=== PATIENT | female | born 1945 | race African-American/Black ===

== ENCOUNTER 2016-07-17 09:29 | Emergency (ER) | payer MEDICAID ==
[~2016-07-17] VITALS: Ht 160 cm; Wt 107.0 kg
[~2016-07-17 09:29] MED LIST: ACET-2178 PO; ALBU6.7H INH; AMLO5TAB88 PO; BENA40TA3 PO; BENAZEPRIL HCL PO; MECL-109 PO; MELO-58 PO; MONT10TA21 PO; OMEP20CA10 PO; [UNRECOGNIZED DRUG - CODE] PO
[2016-07-17 10:13] LABS: EOSINOPHILS % 3.9 % (0.0-5.0); HEMATOCRIT. 40.2 % (36.0-48.0); LYMPHOCYTES % 38.8 % (20.0-50.0); MEAN CORPUSCULAR HEMOGLOBIN 28.2 pg (28.0-32.0); MEAN CORPUSCULAR VOLUME 86.9 fL (81.0-99.0); MEAN PLATELET VOLUME 7.5 fl (7.4-10.4); NEUTROPHILS % 46.3 % (40.0-76.0); PLATELET 368 x1000/uL (130-400); RED BLOOD CELL COUNT 4.62 mill/uL (4.2-5.4); RED CELL DISTRIBUTION WIDTH 14.2 % (11.6-14.6)
[2016-07-17] MEDS ORDERED: KETOROLAC 30MG/ML VIAL IV ONE ×2 (10:15→11:15)
[2016-07-17 10:17] LABS: PROTHROMBIN TIME 10.2 sec
[2016-07-17 10:25] LABS: CARBON DIOXIDE 33 mEq/L (21-32); CHLORIDE 106 mEq/L (98-107)
[2016-07-17 10:26] LABS: TROPONIN I < 0.02 ng/mL (0.00-0.04)
[2016-07-17 10:37] LABS: *AMPHETAMINES SCREEN URINE NEGATIVE (NEGATIVE); *BARBITURATES SCREEN URINE NEGATIVE (NEGATIVE); *BENZODIAZEPINES SCREEN URINE PRESUMTIVE POSITIVE (NEGATIVE); *COCAINE SCREEN URINE NEGATIVE (NEGATIVE); CANNABINOID URINE SCREEN NEGATIVE (NEGATIVE); METHADONE URINE SCREEN NEGATIVE (NEGATIVE); OPIATES URINE SCREEN PRESUMTIVE POSITIVE (NEGATIVE); PHENCYCLIDINE URINE SCREEN NEGATIVE (NEGATIVE)
[2016-07-17 11:50] VITALS: BP 146/90
== END 2016-07-17 12:19 | disposition home or self-care (01) ==
LOC: ER 10:03
DX: M43.6 Torticollis (principal); R07.89 Other chest pain; I10 Essential (primary) hypertension; I25.10 Atherosclerotic heart disease of native coronary artery without angina pectoris; K21.9 Gastro-esophageal reflux disease without esophagitis; J45.909 Unspecified asthma, uncomplicated; Z88.6 Allergy status to analgesic agent; Z88.3 Allergy status to other anti-infective agents; Z88.8 Allergy status to other drugs, medicaments and biological substances
CPT/HCPCS: 36415; 71010; 80048; 80305; 83880; 84484; 85025; 85610; 93005; 96374; 99285; J1885; J7030; J7050; Z7610

== ENCOUNTER 2016-12-01 03:10 | Emergency (ER) | payer MEDICAID ==
[~2016-12-01] VITALS: Ht 160 cm; Wt 84.0 kg
[~2016-12-01 03:10] MED LIST changes: +MELO-106 PO; -MELO-58 PO
[2016-12-01] MEDS ORDERED: ONDANSETRON HCL 4MG/2ML VIAL IV STA (04:15)
[2016-12-01] MEDS ORDERED: SODIUM CHLORIDE 0.9% 1,000 ML IV ONE (04:15)
[2016-12-01] MEDS ORDERED: KETOROLAC 30MG/ML VIAL IV STA (04:15)
[2016-12-01 04:43] LABS: BASOPHILS % 0.6 % (0.0-2.0); EOSINOPHILS % 2.6 % (0.0-5.0); HEMATOCRIT. 39.4 % (36.0-48.0); HEMOGLOBIN. 13.2 g/dL (12.0-16.0); LYMPHOCYTES % 25.4 % (20.0-50.0); MEAN CORPUSCULAR HEMOGLOBIN 29.5 pg (28.0-32.0); MEAN PLATELET VOLUME 7.7 fl (7.4-10.4); MONOCYTES % 9.4 % (2.0-8.0); PLATELET 333 x1000/uL (130-400); RED BLOOD CELL COUNT 4.48 mill/uL (4.2-5.4); RED CELL DISTRIBUTION WIDTH 13.7 % (11.6-14.6)
[2016-12-01 04:53] LABS: PROTHROMBIN TIME 10.6 sec (9.4-11.6)
[2016-12-01 04:55] LABS: CARBON DIOXIDE 30 mEq/L (21-32); CHLORIDE 109 mEq/L (98-107)
[2016-12-01 07:41] LABS: GLUCOSE URINE NEGATIVE (NEGATIVE); KETONES URINE NEGATIVE (NEGATIVE); LEUKOCYTE ESTERASE URINE NEGATIVE (NEGATIVE); NITRITE URINE NEGATIVE (NEGATIVE); OCCULT BLOOD URINE NEGATIVE (NEGATIVE); PH URINE 6.5 (4.5-8.0); PROTEIN URINE TRACE (NEGATIVE); SPECIFIC GRAVITY URINE 1.017 (1.005-1.030); UROBILINOGEN URINE 0.2 E.U./dL (0.2-1.0)
[2016-12-01 07:45] LABS: CLARITY URINE CLEAR (CLEAR); COLOR URINE YELLOW (YELLOW)
[2016-12-01 09:15] VITALS: BP 117/72
== END 2016-12-01 10:04 | disposition home or self-care (01) ==
LOC: ER 03:29
DX: M54.9 Dorsalgia, unspecified (principal); I10 Essential (primary) hypertension; M79.7 Fibromyalgia; J45.909 Unspecified asthma, uncomplicated; Z90.710 Acquired absence of both cervix and uterus; Z88.6 Allergy status to analgesic agent; Z88.1 Allergy status to other antibiotic agents
CPT/HCPCS: 36415; 71010; 74176; 80053; 81001; 83690; 85025; 85610; 96361; 96374; 96375; 99285; J1885; J2405; J7030; Z7610

== ENCOUNTER 2017-02-16 08:50 | Emergency (ER) | payer MEDICAID ==
[~2017-02-16] VITALS: Ht 160 cm; Wt 83.0 kg
[2017-02-16] MEDS ORDERED: ACETAMINOPHEN 325MG TABLET PO ONE (15:15)
[2017-02-16 17:22] VITALS: BP 145/72
== END 2017-02-16 17:22 | disposition home or self-care (01) ==
LOC: ER 09:26
DX: M25.561 Pain in right knee (principal); M25.562 Pain in left knee; M79.7 Fibromyalgia; I10 Essential (primary) hypertension; J45.909 Unspecified asthma, uncomplicated; M19.90 Unspecified osteoarthritis, unspecified site; Z87.891 Personal history of nicotine dependence; Z88.1 Allergy status to other antibiotic agents; Z88.5 Allergy status to narcotic agent; Z79.899 Other long term (current) drug therapy; Z90.710 Acquired absence of both cervix and uterus
CPT/HCPCS: 73562; 99284

== ENCOUNTER 2017-04-11 13:36 | Emergency (ER) | payer MEDICARE, MEDICAID ==
[~2017-04-11] VITALS: Ht 160 cm; Wt 83.0 kg
[2017-04-11 14:02] VITALS: BP 155/93
== END 2017-04-11 19:15 | disposition left against medical advice (07) ==
LOC: ER 15:26
DX: Z53.21 Procedure and treatment not carried out due to patient leaving prior to being seen by health care provider (principal)
CPT/HCPCS: 93005

== ENCOUNTER 2017-04-12 09:06 | Emergency (ER) | payer MEDICARE, MEDICAID ==
[~2017-04-12] VITALS: Ht 160 cm; Wt 83.0 kg
[2017-04-12 09:20] VITALS: BP 120/87
[2017-04-12] MEDS ORDERED: DIAZEPAM 5 MG TABLET PO ONE (14:15)
== END 2017-04-12 18:15 | disposition home or self-care (01) ==
LOC: ER 09:28
DX: M79.7 Fibromyalgia (principal); J45.909 Unspecified asthma, uncomplicated; I10 Essential (primary) hypertension; M19.90 Unspecified osteoarthritis, unspecified site; Z88.1 Allergy status to other antibiotic agents; Z88.5 Allergy status to narcotic agent; Z88.6 Allergy status to analgesic agent
CPT/HCPCS: 72141; 99284

== ENCOUNTER 2017-05-15 11:36 | Emergency (ER) | payer MEDICARE, MEDICAID ==
[~2017-05-15] VITALS: Ht 160 cm; Wt 82.0 kg
[2017-05-15 17:40] VITALS: BP 124/79
== END 2017-05-15 17:43 | disposition home or self-care (01) ==
LOC: ER 14:15
DX: B86 Scabies (principal); I10 Essential (primary) hypertension; J45.909 Unspecified asthma, uncomplicated; M79.7 Fibromyalgia; M54.30 Sciatica, unspecified side; Z88.1 Allergy status to other antibiotic agents; Z90.710 Acquired absence of both cervix and uterus
CPT/HCPCS: 99283

== ENCOUNTER 2018-04-12 10:20 | Inpatient (IN) | payer MEDICARE, MEDICAID ==
[~2018-04-12] VITALS: Ht 160 cm; Wt 82.1 kg
[~2018-04-12 10:20] MED LIST changes: -BENA40TA3 PO; +BENA40TA9 PO
[2018-04-12] MEDS ORDERED: NITROGLYCERIN 0.4MG TABLET SL SL PRN (10:45)
[2018-04-12 11:02] LABS: EOSINOPHILS % 3.1 % (0.0-5.0); HEMATOCRIT. 41.2 % (36.0-48.0); HEMOGLOBIN. 13.4 g/dL (12.0-16.0); LYMPHOCYTES % 35.3 % (20.0-50.0); MEAN CORPUSCULAR HEMOGLOBIN 29.2 pg (28.0-32.0); MEAN CORPUSCULAR VOLUME 89.4 fL (81.0-99.0); MEAN PLATELET VOLUME 7.6 fl (7.4-10.4); MONOCYTES % 9.5 % (2.0-8.0); NEUTROPHILS % 51.1 % (40.0-76.0); PLATELET 328 x1000/uL (130-400); RED BLOOD CELL COUNT 4.61 mill/uL (4.2-5.4); RED CELL DISTRIBUTION WIDTH 14.3 % (11.6-14.6)
[2018-04-12 11:08] LABS: CHLORIDE 109 mEq/L (98-107)
[2018-04-12 11:13] LABS: D-DIMER 0.37 mg/L FEU (<0.50); PROTHROMBIN TIME 10.3 sec (9.1-11.1)
[2018-04-12] MEDS: MORPHINE SULFATE 4 MG/ML CPJ (NOT FOR IM USE) IV PRN (20:27)
[2018-04-12] MEDS ORDERED: LORAZEPAM 0.5MG TABLET PO PRN (21:15)
[2018-04-12] MEDS ORDERED: ACETAMINOPHEN 325MG TABLET PO PRN (21:15)
[2018-04-12] MEDS ORDERED: HYDROCODONE/ACETAMINOPHEN 5/325MG TABLET PO PRN (21:15)
[2018-04-12] MEDS ORDERED: DOCUSATE SODIUM 100MG CAPSULE PO PRN (21:15)
[2018-04-12] MEDS ORDERED: ONDANSETRON HCL 4MG/2ML INJ IV PRN (21:15)
[2018-04-12] MEDS: MAGNESIUM/ALUMINUM HYDROXIDE/SIMETHICONE 30ML UDC PO PRN (21:27)
[2018-04-12 21:47] LABS: CREATINE KINASE MB FRACTION 3.1 ng/mL (0.5-3.6)
[2018-04-12] MEDS: CLONIDINE 0.1MG TABLET PO PRN (22:20)
[2018-04-12 23:30] VITALS: BP 145/81
[2018-04-13] VITALS: BP 145/81
[2018-04-13] MEDS: PREDNISONE 20MG TABLET PO SCH ×2 (02:00→02:26)
[2018-04-13] MEDS ORDERED: AMLODIPINE 5MG TABLET PO SCH (02:00)
[2018-04-13] MEDS: BENAZEPRIL 10MG TABLET PO SCH ×2 (02:25→20:50)
[2018-04-13] MEDS: PANTOPRAZOLE 40MG DR TABLET PO SCH (02:25)
[2018-04-13 08:00] VITALS: BP 154/73
[2018-04-13 08:24] LABS: EOSINOPHILS % 3.4 % (0.0-5.0); HEMATOCRIT. 39.6 % (36.0-48.0); HEMOGLOBIN. 12.8 g/dL (12.0-16.0); MEAN CORPUSCULAR HEMOGLOBIN 28.7 pg (28.0-32.0); MEAN CORPUSCULAR VOLUME 88.9 fL (81.0-99.0); MEAN PLATELET VOLUME 7.9 fl (7.4-10.4); MONOCYTES % 11.7 % (2.0-8.0); NEUTROPHILS % 51.9 % (40.0-76.0); PLATELET 296 x1000/uL (130-400); RED BLOOD CELL COUNT 4.45 mill/uL (4.2-5.4); RED CELL DISTRIBUTION WIDTH 14.2 % (11.6-14.6)
[2018-04-13 08:54] LABS: CHLORIDE 109 mEq/L (98-107)
[2018-04-13 09:00] LABS: PHOSPHORUS 3.3 mg/dL (2.5-4.9)
[2018-04-13 09:01] LABS: LDL CHOLESTEROL 94 mg/dL (5-100)
[2018-04-13 09:03] LABS: HDL CHOLESTEROL 54 mg/dL (40-59)
[2018-04-13] MEDS: MAGNESIUM/ALUMINUM HYDROXIDE/SIMETHICONE 30ML UDC PO PRN (09:32)
[2018-04-13] MEDS: LORATADINE 10MG TABLET PO SCH (09:33)
[2018-04-13 09:49] LABS: CLARITY URINE CLEAR (CLEAR); COLOR URINE YELLOW (YELLOW); KETONES URINE NEGATIVE (NEGATIVE); LEUKOCYTE ESTERASE URINE NEGATIVE (NEGATIVE); NITRITE URINE NEGATIVE (NEGATIVE); OCCULT BLOOD URINE NEGATIVE (NEGATIVE); PH URINE 6.5 (4.5-8.0); PROTEIN URINE NEGATIVE (NEGATIVE); SPECIFIC GRAVITY URINE 1.014 (1.005-1.030); UROBILINOGEN URINE 0.2 E.U./dL (0.2-1.0)
[2018-04-13 10:00] LABS: OPIATES URINE SCREEN PRESUMTIVE POSITIVE (NEGATIVE)
[2018-04-13 10:01] LABS: *AMPHETAMINES SCREEN URINE NEGATIVE (NEGATIVE); *BARBITURATES SCREEN URINE NEGATIVE (NEGATIVE); *BENZODIAZEPINES SCREEN URINE NEGATIVE (NEGATIVE); *COCAINE SCREEN URINE NEGATIVE (NEGATIVE); CANNABINOID URINE SCREEN NEGATIVE (NEGATIVE); PHENCYCLIDINE URINE SCREEN NEGATIVE (NEGATIVE)
[2018-04-13 10:02] LABS: METHADONE URINE SCREEN NEGATIVE (NEGATIVE)
[2018-04-13 12:00] VITALS: BP 151/86
[2018-04-13] MEDS: ASPIRIN 81MG TABLET PO SCH (12:30)
[2018-04-13] MEDS: MORPHINE SULFATE 4 MG/ML CPJ (NOT FOR IM USE) IV PRN (13:20)
[2018-04-13] MEDS: AMLODIPINE 5MG TABLET PO SCH (13:21)
[2018-04-13] MEDS ORDERED: MORPHINE SULFATE 4 MG/ML CPJ (NOT FOR IM USE) IV PRN (13:45)
[2018-04-13 16:00] VITALS: BP 153/92
[2018-04-13] MEDS ORDERED: SIMETHICONE 80MG TABLET CHEW PO PRN (16:30)
[2018-04-13] MEDS: MONTELUKAST SODIUM 10MG TABLET PO SCH (17:45)
[2018-04-13] MEDS: IPRATROPIUM/ALBUTEROL 0.5-3(2.5)MG/3ML NEB INH PRN (18:10)
[2018-04-13 20:00] VITALS: BP 153/89
[2018-04-14] VITALS: BP 140/89
[2018-04-14] MEDS: IPRATROPIUM/ALBUTEROL 0.5-3(2.5)MG/3ML NEB INH PRN ×2 (01:02→06:10)
[2018-04-14 04:00] VITALS: BP 142/89
[2018-04-14] MEDS: PANTOPRAZOLE 40MG DR TABLET PO SCH (04:05)
[2018-04-14 07:24] LABS: BASOPHILS % 0.8 % (0.0-2.0); EOSINOPHILS % 1.5 % (0.0-5.0); HEMATOCRIT. 41.4 % (36.0-48.0); HEMOGLOBIN. 13.5 g/dL (12.0-16.0); LYMPHOCYTES % 27.9 % (20.0-50.0); MEAN CORPUSCULAR HEMOGLOBIN 28.8 pg (28.0-32.0); MEAN CORPUSCULAR VOLUME 88.2 fL (81.0-99.0); MONOCYTES % 10.3 % (2.0-8.0); NEUTROPHILS % 59.5 % (40.0-76.0); PLATELET 304 x1000/uL (130-400)
[2018-04-14 08:00] VITALS: BP 140/94
[2018-04-14 08:12] LABS: CHLORIDE 109 mEq/L (98-107)
[2018-04-14] MEDS: ASPIRIN 81MG TABLET PO SCH (09:00)
[2018-04-14] MEDS: PREDNISONE 20MG TABLET PO SCH (09:00)
[2018-04-14] MEDS: BENAZEPRIL 10MG TABLET PO SCH ×2 (09:16→23:01)
[2018-04-14] MEDS: AMLODIPINE 5MG TABLET PO SCH (09:16)
[2018-04-14] MEDS: LORATADINE 10MG TABLET PO SCH (09:16)
[2018-04-14 12:13] VITALS: BP 154/92
[2018-04-14] MEDS: MAGNESIUM/ALUMINUM HYDROXIDE/SIMETHICONE 30ML UDC PO PRN (12:50)
[2018-04-14 16:21] VITALS: BP 142/84
[2018-04-14] MEDS: MONTELUKAST SODIUM 10MG TABLET PO SCH (17:24)
[2018-04-14 20:00] VITALS: BP 153/89
[2018-04-15] VITALS: BP 132/77
[2018-04-15 04:00] VITALS: BP 138/83
[2018-04-15] MEDS: PANTOPRAZOLE 40MG DR TABLET PO SCH (06:23)
[2018-04-15 07:02] LABS: BASOPHILS % 0.9 % (0.0-2.0); EOSINOPHILS % 2.9 % (0.0-5.0); HEMATOCRIT. 44.9 % (36.0-48.0); HEMOGLOBIN. 14.7 g/dL (12.0-16.0); LYMPHOCYTES % 29.1 % (20.0-50.0); MEAN CORPUSCULAR HEMOGLOBIN 29.1 pg (28.0-32.0); MEAN PLATELET VOLUME 8.2 fl (7.4-10.4); MONOCYTES % 11.2 % (2.0-8.0); NEUTROPHILS % 55.9 % (40.0-76.0); PLATELET 349 x1000/uL (130-400); RED BLOOD CELL COUNT 5.04 mill/uL (4.2-5.4); RED CELL DISTRIBUTION WIDTH 14.2 % (11.6-14.6)
[2018-04-15 07:16] LABS: CHLORIDE 109 mEq/L (98-107)
[2018-04-15 08:27] VITALS: BP 144/88
[2018-04-15] MEDS: LORATADINE 10MG TABLET PO SCH (08:33)
[2018-04-15] MEDS: AMLODIPINE 5MG TABLET PO SCH (08:33)
[2018-04-15] MEDS: PREDNISONE 20MG TABLET PO SCH (08:33)
[2018-04-15] MEDS: BENAZEPRIL 10MG TABLET PO SCH (08:33)
[2018-04-15 11:50] VITALS: BP 164/96
[2018-04-15] MEDS: CLONIDINE 0.1MG TABLET PO PRN (11:54)
[2018-04-15] MEDS ORDERED: NITR0.4T49 SL (12:31)
[2018-04-15 14:01] VITALS: BP 140/84
== END 2018-04-15 14:32 | disposition home or self-care (01) | DRG 203 ==
LOC: ER 10:20 → 6WST 12:55 → EDBEDREQ 12:58 → EDBEDREQTM 12:58 → ENRESERV 20:23
PROVIDERS: ADMIT Internal Medicine; ATTEND Internal Medicine
DX: M94.0 Chondrocostal junction syndrome [Tietze] (principal); E87.8 Other disorders of electrolyte and fluid balance, not elsewhere classified; R65.10 Systemic inflammatory response syndrome (SIRS) of non-infectious origin without acute organ dysfunction; I07.1 Rheumatic tricuspid insufficiency; N28.1 Cyst of kidney, acquired; K75.9 Inflammatory liver disease, unspecified; K21.9 Gastro-esophageal reflux disease without esophagitis; E78.5 Hyperlipidemia, unspecified; N18.9 Chronic kidney disease, unspecified; I12.9 Hypertensive chronic kidney disease with stage 1 through stage 4 chronic kidney disease, or unspecified chronic kidney disease; M19.90 Unspecified osteoarthritis, unspecified site; J45.909 Unspecified asthma, uncomplicated; Z90.710 Acquired absence of both cervix and uterus; Z88.6 Allergy status to analgesic agent; Z88.1 Allergy status to other antibiotic agents; Z91.011 Allergy to milk products; Z88.8 Allergy status to other drugs, medicaments and biological substances; Z91.018 Allergy to other foods; Z79.899 Other long term (current) drug therapy
CPT/HCPCS: 36415; 71045; 80048; 80061; 80305; 82550; 82553; 83036; 83735; 83880; 84100; 84443; 84484; 85379; 93005; 93306; 93970; 94640; 99285; J2270; J7512; J7620

== ENCOUNTER 2018-07-20 06:09 | Emergency (ER) | payer MEDICARE, MEDICAID ==
[~2018-07-20] VITALS: Ht 160 cm; Wt 86.0 kg
[~2018-07-20 06:09] MED LIST changes: +NITR0.4T49 SL; -OMEP20CA10 PO; +OMEP20CA5 PO
[2018-07-20] MEDS ORDERED: KETOROLAC 60MG/2ML VIAL IM STA (07:01)
[2018-07-20 07:24] LABS: BASOPHILS % 1.6 % (0.0-2.0); EOSINOPHILS % 3.3 % (0.0-5.0); HEMATOCRIT. 39.6 % (36.0-48.0); LYMPHOCYTES % 35.4 % (20.0-50.0); MEAN CORPUSCULAR HEMOGLOBIN 28.7 pg (28.0-32.0); MEAN CORPUSCULAR VOLUME 87.6 fL (81.0-99.0); MEAN PLATELET VOLUME 7.4 fl (7.4-10.4); MONOCYTES % 9.9 % (2.0-8.0); NEUTROPHILS % 49.8 % (40.0-76.0); PLATELET 368 x1000/uL (130-400); RED BLOOD CELL COUNT 4.53 mill/uL (4.2-5.4); RED CELL DISTRIBUTION WIDTH 13.9 % (11.6-14.6)
[2018-07-20 07:35] LABS: CHLORIDE 108 mEq/L (98-107)
[2018-07-20 09:29] VITALS: BP 131/78
== END 2018-07-20 09:42 | disposition home or self-care (01) ==
LOC: ER 06:09
DX: R05 Cough (principal); R07.89 Other chest pain; R94.31 Abnormal electrocardiogram [ECG] [EKG]; I10 Essential (primary) hypertension
CPT/HCPCS: 36415; 71045; 80053; 85025; 87040; 93005; 96372; 99284; J1885

== ENCOUNTER 2019-03-11 07:04 | Emergency (ER) | payer MEDICARE, MEDICAID ==
[~2019-03-11] VITALS: Ht 160 cm; Wt 83.0 kg
[~2019-03-11 07:04] MED LIST changes: -ACET-2178 PO; -ALBU6.7H INH; +ALBU6.7H11 INH; -MECL-109 PO; +MECL-159 PO; +OMEP20CA14 PO; -OMEP20CA5 PO; +TOPUD PO
[2019-03-11] MEDS ORDERED: ACETAMINOPHEN 325MG TABLET PO ONE (08:15)
[2019-03-11 10:10] VITALS: BP 120/75
== END 2019-03-11 10:18 | disposition home or self-care (01) ==
LOC: ER 07:04
DX: S09.90XA Unspecified injury of head, initial encounter (principal); S13.4XXA Sprain of ligaments of cervical spine, initial encounter; I10 Essential (primary) hypertension; J45.909 Unspecified asthma, uncomplicated; Z88.6 Allergy status to analgesic agent; Z88.5 Allergy status to narcotic agent; Z88.1 Allergy status to other antibiotic agents; Z79.899 Other long term (current) drug therapy; Z90.710 Acquired absence of both cervix and uterus; Z98.890 Other specified postprocedural states; X58.XXXA Exposure to other specified factors, initial encounter; Y93.89 Activity, other specified; Y92.89 Other specified places as the place of occurrence of the external cause; Y99.8 Other external cause status
CPT/HCPCS: 72040; 99284

== ENCOUNTER 2020-07-28 18:19 | Inpatient (IN) | payer MEDICARE, OTHER ==
[~2020-07-28] VITALS: Ht 160 cm; Wt 70.4 kg
[~2020-07-28 18:19] MED LIST changes: +ALBU6.7H9 INH; +AMLO10TA4 MT; -AMLO5TAB88 PO; +BENA20TA10 MT; -BENA40TA9 PO; +LORA10CA MT; -[UNRECOGNIZED DRUG - CODE] PO
[2020-07-28] MEDS ORDERED: KETOROLAC 30MG/ML VIAL IV STA (23:04)
[2020-07-28] MEDS ORDERED: ONDANSETRON HCL 4MG/2ML INJ IV STA (23:04)
[2020-07-28 23:25] LABS: HEMOGLOBIN. 15.9 g/dL (12.0-16.0); MEAN CORPUSCULAR HEMOGLOBIN 28.6 pg (28.0-32.0); MEAN CORPUSCULAR VOLUME 86.3 fL (81.0-99.0); MEAN PLATELET VOLUME 7.5 fl (7.4-10.4); PLATELET 407 x1000/uL (130-400); RED BLOOD CELL COUNT 5.56 mill/uL (4.2-5.4); RED CELL DISTRIBUTION WIDTH 13.8 % (11.6-14.6)
[2020-07-28 23:29] LABS: CHLORIDE 107 mEq/L (98-107)
[2020-07-29 00:08] LABS: PLATELET ESTIMATE NORMAL
[2020-07-29 03:05] LABS: CLARITY URINE CLOUDY (CLEAR); COLOR URINE DARK YELLOW (YELLOW); SPECIFIC GRAVITY URINE 1.031 (1.005-1.030)
[2020-07-29 03:06] LABS: KETONES URINE TRACE (NEGATIVE); LEUKOCYTE ESTERASE URINE 1+ (NEGATIVE); NITRITE URINE NEGATIVE (NEGATIVE); OCCULT BLOOD URINE NEGATIVE (NEGATIVE); PROTEIN URINE 2+ (NEGATIVE); UROBILINOGEN URINE 1.031 E.U./dL (0.2-1.0)
[2020-07-29] MEDS ORDERED: CEFTRIAXONE 1 G PREMIX 50 ML IV NR (04:30)
[2020-07-29 08:35] VITALS: BP 126/83
[2020-07-29 08:59] VITALS: BP 126/83
[2020-07-29 12:32] VITALS: BP 110/86
[2020-07-29] MEDS: DEXT 5%/0.45% NACL 1000ML 1,000 ML IV SCH ×2 (12:44→20:43)
[2020-07-29] MEDS: MORPHINE SULFATE 2 MG/ML CPJ (NOT FOR IM USE) IV PRN ×3 (12:46→21:49)
[2020-07-29] MEDS: ONDANSETRON HCL 4MG/2ML INJ IV PRN ×2 (14:21→20:43)
[2020-07-29] MEDS ORDERED: ENOXAPARIN 30MG/0.3ML SYR SUBCUT SCH (16:00)
[2020-07-29 16:09] VITALS: BP 135/77
[2020-07-29] MEDS: OMEPRAZOLE 20MG CAPSULE EXTENDED RELEASE PO SCH (16:55)
[2020-07-29 20:00] VITALS: BP 105/58
[2020-07-29] MEDS ORDERED: IPRATROPIUM/ALBUTEROL 0.5-3(2.5)MG/3ML NEB HHN PRN (20:15)
[2020-07-29] MEDS: IPRATROPIUM/ALBUTEROL 0.5-3(2.5)MG/3ML NEB HHN SCH (20:15)
[2020-07-30] VITALS: BP 112/58
[2020-07-30] MEDS: IPRATROPIUM/ALBUTEROL 0.5-3(2.5)MG/3ML NEB HHN SCH ×5 (00:55→15:30)
[2020-07-30 04:30] VITALS: BP 106/69
[2020-07-30] MEDS: MORPHINE SULFATE 2 MG/ML CPJ (NOT FOR IM USE) IV PRN (06:12)
[2020-07-30] MEDS: OMEPRAZOLE 20MG CAPSULE EXTENDED RELEASE PO SCH (06:23)
[2020-07-30] MEDS: DEXT 5%/0.45% NACL 1000ML 1,000 ML IV SCH (06:23)
[2020-07-30 08:02] VITALS: BP 124/78
[2020-07-30] MEDS ORDERED: LACTULOSE 20G/30ML UDC PO SCH (11:00)
[2020-07-30 12:15] VITALS: BP 135/83
[2020-07-30] MEDS ORDERED: ENOXAPARIN 30MG/0.3ML SYR SUBCUT SCH (15:00)
[2020-07-30] MEDS ORDERED: LEVO500T89 MT (15:30)
[2020-07-30 15:44] VITALS: BP 128/68
[2020-07-30] MEDS ORDERED: LEVOFLOXACIN 500MG TABLET PO NR (16:00)
[2020-07-30 16:35] VITALS: BP 128/68
[2020-07-30] MEDS ORDERED: ACETAMINOPHEN 325MG TABLET PO NR (19:30)
[2020-07-31] MEDS ORDERED: FAMOTIDINE 20MG TABLET PO SCH (09:00)
[2020-07-31] MEDS ORDERED: LEVOFLOXACIN 250MG TABLET PO SCH (11:00)
== END 2020-07-30 19:25 | disposition home or self-care (01) | DRG 241 ==
LOC: ER 18:19 → 6WST 07-29 04:57 → CANRESERV 07-29 07:20 → ENRESERV 07-29 07:20 → 6WST 07-29 08:44
PROVIDERS: ADMIT Internal Medicine; ATTEND Internal Medicine
DX: K29.70 Gastritis, unspecified, without bleeding (principal); K56.600 Partial intestinal obstruction, unspecified as to cause; N39.0 Urinary tract infection, site not specified; K52.9 Noninfective gastroenteritis and colitis, unspecified; I10 Essential (primary) hypertension; M19.90 Unspecified osteoarthritis, unspecified site; J45.909 Unspecified asthma, uncomplicated; K21.9 Gastro-esophageal reflux disease without esophagitis; Z90.710 Acquired absence of both cervix and uterus; Z88.6 Allergy status to analgesic agent; Z88.1 Allergy status to other antibiotic agents; Z88.8 Allergy status to other drugs, medicaments and biological substances; Z79.899 Other long term (current) drug therapy; Z91.011 Allergy to milk products; Z91.018 Allergy to other foods
CPT/HCPCS: 36415; 74018; 74176; 80053; 81003; 85025; 87077; 87186; 93005; 94640; 99285; J0696; J1650; J1885; J2270; J2405

== ENCOUNTER 2021-01-17 13:18 | Inpatient (IN) | payer MEDICARE, OTHER ==
[~2021-01-17] VITALS: Ht 160 cm; Wt 83.0 kg
[~2021-01-17 13:18] MED LIST changes: -ALBU6.7H11 INH; +ALBU6.7H15 INH; +LEVO500T89 MT
[2021-01-17] MEDS ORDERED: VISCOUS LIDOCAINE 2% 15 ML UDC PO ONE (14:00)
[2021-01-17] MEDS ORDERED: MAGNESIUM/ALUMINUM HYDROXIDE/SIMETHICONE 30ML UDC PO ONE (14:00)
[2021-01-17 15:16] LABS: CHLORIDE 105 mEq/L (98-107)
[2021-01-17 15:25] LABS: BASOPHILS % 0.4 % (0.0-2.0); HEMATOCRIT. 48.9 % (36.0-48.0); HEMOGLOBIN. 15.7 g/dL (12.0-16.0); LYMPHOCYTES % 11.8 % (20.0-50.0); MEAN CORPUSCULAR HEMOGLOBIN 28.4 pg (28.0-32.0); MEAN CORPUSCULAR VOLUME 88.1 fL (81.0-99.0); MEAN PLATELET VOLUME 8.2 fl (7.4-10.4); MONOCYTES % 3.1 % (2.0-8.0); NEUTROPHILS % 84.7 % (40.0-76.0); PLATELET 378 x1000/uL (130-400); RED BLOOD CELL COUNT 5.55 mill/uL (4.2-5.4); RED CELL DISTRIBUTION WIDTH 14.4 % (11.6-14.6)
[2021-01-17] MEDS ORDERED: ONDANSETRON HCL 4MG/2ML INJ IV STA (23:37)
[2021-01-17] MEDS ORDERED: KETOROLAC 15MG/ML VIAL IV ONE (23:45)
[2021-01-17] MEDS ORDERED: SODIUM CHLORIDE 0.9% 1,000 ML IV ONE (23:45)
[2021-01-18] MEDS ORDERED: KETOROLAC 30MG/ML VIAL IV NR (00:15)
[2021-01-18] MEDS ORDERED: ONDANSETRON HCL 4MG/2ML INJ IV ONE (05:00)
[2021-01-18] MEDS ORDERED: MORPHINE SULFATE 4 MG/ML CPJ (NOT FOR IM USE) IV ONE (05:00)
[2021-01-18] MEDS ORDERED: DEXT 5%/0.45% NACL KCL 10MEQ/L 1,000 ML IV SCH (09:15)
[2021-01-18] MEDS ORDERED: NALOXONE HCL 0.4MG/ML VIAL IV PRN (10:00)
[2021-01-18] MEDS: MORPHINE SULFATE 2 MG/ML CPJ (NOT FOR IM USE) IV PRN ×3 (10:06→23:30)
[2021-01-18] MEDS: PANTOPRAZOLE SODIUM 40 MG/VIAL IV SCH (10:06)
[2021-01-18 11:16] VITALS: BP 144/85
[2021-01-18 12:00] VITALS: BP 143/80
[2021-01-18] MEDS: DEXT 5%/0.45% NACL 1000ML 1,000 ML IV SCH ×2 (12:25→19:30)
[2021-01-18 16:00] VITALS: BP 125/74
[2021-01-18 20:00] VITALS: BP 128/71
[2021-01-19] VITALS: BP 128/67
[2021-01-19 04:00] VITALS: BP 133/73
[2021-01-19] MEDS: MORPHINE SULFATE 2 MG/ML CPJ (NOT FOR IM USE) IV PRN ×3 (04:04→14:48)
[2021-01-19] MEDS: DEXT 5%/0.45% NACL 1000ML 1,000 ML IV SCH ×2 (06:10→18:44)
[2021-01-19 07:09] LABS: BASOPHILS % 0.4 % (0.0-2.0); EOSINOPHILS % 1.1 % (0.0-5.0); HEMOGLOBIN. 14.2 g/dL (12.0-16.0); LYMPHOCYTES % 18.7 % (20.0-50.0); MEAN CORPUSCULAR HEMOGLOBIN 29.1 pg (28.0-32.0); MEAN CORPUSCULAR VOLUME 88.5 fL (81.0-99.0); MEAN PLATELET VOLUME 8.2 fl (7.4-10.4); MONOCYTES % 11.7 % (2.0-8.0); NEUTROPHILS % 68.1 % (40.0-76.0); PLATELET 288 x1000/uL (130-400); RED BLOOD CELL COUNT 4.86 mill/uL (4.2-5.4)
[2021-01-19 08:00] VITALS: BP 139/70
[2021-01-19] MEDS: PANTOPRAZOLE SODIUM 40 MG/VIAL IV SCH (09:28)
[2021-01-19 12:00] VITALS: BP 143/57
[2021-01-19] MEDS: THROAT LOZENGES-BENZOCAINE/MENTH/CETYLPYRD CL LOZENGES MM PRN ×2 (12:53→18:34)
[2021-01-19 16:00] VITALS: BP 126/90
[2021-01-19] MEDS ORDERED: ONDANSETRON HCL 4MG/2ML INJ IV PRN (18:00)
[2021-01-19 20:00] VITALS: BP 140/75
[2021-01-19] MEDS ORDERED: CLOTRIMAZOLE 1% VAGINAL CREAM 45GM VG SCH (21:00)
[2021-01-20] VITALS: BP 146/97
[2021-01-20] MEDS: MORPHINE SULFATE 2 MG/ML CPJ (NOT FOR IM USE) IV PRN (00:56)
[2021-01-20 04:00] VITALS: BP 138/78
[2021-01-20 08:00] VITALS: BP 132/81
[2021-01-20] MEDS ORDERED: FAMOTIDINE 20MG/2ML VIAL IV SCH (09:00)
[2021-01-20] MEDS ORDERED: BENAZEPRIL 10MG TABLET PO SCH (10:15)
[2021-01-20] MEDS ORDERED: AMLODIPINE 5MG TABLET PO SCH (10:15)
[2021-01-20] MEDS: DEXT 5%/0.45% NACL 1000ML 1,000 ML IV SCH (10:56)
[2021-01-20] MEDS ORDERED: IPRATROPIUM/ALBUTEROL 0.5-3(2.5)MG/3ML NEB HHN PRN (11:30)
[2021-01-20 12:00] VITALS: BP 155/89
[2021-01-20] MEDS ORDERED: HYDROCODONE/ACETAMINOPHEN 5/325MG TABLET PO PRN ×2 (12:00→13:00)
[2021-01-20] MEDS: THROAT LOZENGES-BENZOCAINE/MENTH/CETYLPYRD CL LOZENGES MM PRN (13:28)
[2021-01-20 15:39] VITALS: BP 120/72
[2021-01-20 16:00] VITALS: BP 120/72
== END 2021-01-20 17:55 | disposition home or self-care (01) | DRG 247 ==
LOC: ER 13:55 → 6EST 01-18 05:50 → EDBEDREQ 01-18 05:56 → EDBEDREQTM 01-18 05:56 → ENRESERV 01-18 07:34
PROVIDERS: ADMIT Internal Medicine; ATTEND Internal Medicine
PROC: 0D9670Z Drainage of Stomach with Drainage Device, Via Natural or Artificial Opening (ICD-10-PCS; principal; 2021-01-18)
DX: K56.600 Partial intestinal obstruction, unspecified as to cause (principal); I10 Essential (primary) hypertension; J45.909 Unspecified asthma, uncomplicated; M19.90 Unspecified osteoarthritis, unspecified site; K21.9 Gastro-esophageal reflux disease without esophagitis; Z82.49 Family history of ischemic heart disease and other diseases of the circulatory system; Z90.710 Acquired absence of both cervix and uterus; Z88.5 Allergy status to narcotic agent; Z88.8 Allergy status to other drugs, medicaments and biological substances
CPT/HCPCS: 36415; 71045; 74018; 74176; 80048; 80053; 83880; 84484; 85025; 93005; 94640; 99291; C9113; J1885; J2270; J2405; J3490; J7030

== ENCOUNTER 2021-11-28 10:00 | Emergency (ER) | payer MEDICARE, OTHER ==
[~2021-11-28] VITALS: Ht 160 cm; Wt 82.0 kg
[~2021-11-28 10:00] MED LIST changes: +ALBU6.7H3 INH; -ALBU6.7H9 INH; -AMLO10TA4 MT; +AMLO5TAB88 PO; -BENA20TA10 MT; +BENA40TA91 MT; -BENAZEPRIL HCL PO; -LEVO500T89 MT; -MECL-159 PO; -MELO-106 PO; -MONT10TA21 PO; -NITR0.4T49 SL
[2021-11-28] MEDS ORDERED: TOPUD PO ×3 (11:40→11:48)
[2021-11-28 11:52] VITALS: BP 138/77
== END 2021-11-28 11:53 | disposition home or self-care (01) ==
LOC: ER 10:00
DX: M25.571 Pain in right ankle and joints of right foot (principal); M79.89 Other specified soft tissue disorders; R20.0 Anesthesia of skin; I10 Essential (primary) hypertension
CPT/HCPCS: 73610; 93971; 99284